=== PATIENT | female | born 1950 | race Caucasian/White ===

== ENCOUNTER → 2019-11-10 | Outpatient (CLI) | payer BC ==
--- NOTE | 2019-11-10 15:24 | RAD ---
EXAM DESCRIPTION: Lumbar Spine 3 Views CLINICAL HISTORY: SPONDYLOSIS WITH RADICULOPATHY COMPARISON: None Available. TECHNIQUE: AP/lateral/coned-down lateral FINDINGS: Pedicle screw and interbody fusion is observed at the L3-4 L4-5 and L5-S1 levels. A wide laminectomy is seen to extend from L3 through L5. The spine is somewhat osteopenic. No hardware failure is detected. Mild degenerative changes are observed in the upper lumbar spine. IMPRESSION: Pedicle screw and interbody fusion is observed at the L3-4 L4-5 and L5-S1 levels. Electronically signed by: Virgil Grier MD 11/10/2019 3:23 PM CDT
== END ==
LOC: RAD 13:26
PROVIDERS: ATTEND Neurological Surgery
DX: M47.26 Other spondylosis with radiculopathy, lumbar region (principal); Z98.1 Arthrodesis status